=== PATIENT | female | born 1995 ===

== ENCOUNTER 2021-10-22 09:57 | Emergency (ER) | payer SELFPAY ==
[2021-10-22] MEDS ORDERED: LORazepam 2 MG/ML VIAL IM PRN (10:20)
[2021-10-22] MEDS ORDERED: HALOPERIDOL LACTATE 5 MG/1 ML INJ IM PRN (10:20)
[2021-10-22] MEDS ORDERED: SODIUM CHLORIDE 0.9% 1000 ML 1,000 ML IV ONE (10:20)
[2021-10-22] MEDS ORDERED: SODIUM CHLORIDE 0.9% 500 ML 1,000 ML IV ONE (10:20)
--- NOTE | 2021-10-22 10:25 | Emergency Department Report ---
ED General Adult HPI - General Chief complaint: Psych Stated complaint: leave me alone Time Seen by Provider: 10/22/21 10:20 Source: patient, EMS (Verbal report received from emergency medical services. EMS documentation not available at time of chart dictation ), RN notes reviewed Mode of arrival: Stretcher Limitations: Other (Patient disorganized and psychotic and received midazolam from EMS) - History of Present Illness Initial comments: The patient was evaluated in the emergency department for symptoms described in the history of present illness. He/she was evaluated in the context of the global COVID-19 pandemic, which necessitated consideration that the patient might be at risk for infection with the virus that causes COVID-19. Institut ional protocols and algorithms that pertain to the evaluation of patients at risk for COVID-19 are in a state of rapid change based on information released by regulatory bodies including the CDC and federal and state organizations. These policies and algorithms were followed during the patient's care in the emergency department. Please note that these policies, procedures and recommendations changed on a rapid basis. The patient is a 26-year-old female. She is not known to myself previously. She is brought to the hospital by EMS with an EMS articulated complaint of excited delirium. Patient is reportedly homeless, and was noted to be running around a hotel. EMS reports the patient is agitated in the field, and they had to give her midazolam, 5 mg IM, as per their protocol. In the emergency room, the patient is sleepy but arousable. She moves 4 extremities. She denies physical pain. She states that she is homeless but cannot tell me where she is from. She is not accompanied by friends or family at this time for collateral information or additional information. -: unknown Severity scale (0 -10): 0 - Related Data Allergies Allergy/AdvReac Type Severity Reaction Status Date / Time No Known Allergies Allergy Unverified 10/22/21 10:05 ED Review of Systems ROS: Stated complaint: EXCITED DELILIUM Other details as noted in HPI Comment: Unobtainable due to pts medical conditions ED Physical Exam - General Limitations: Other (Disorganization and psychosis) General appearance: anxious - Head Head exam: Present: atraumatic, normocephalic - Eye Eye exam: Present: normal appearance, PERRL, EOMI. Absent: nystagmus - ENT ENT exam: Present: normal exam, normal orophraynx, mucous membranes moist, normal external ear exam - Neck Neck exam: Present: normal inspection, full ROM. Absent: tenderness, meningismus - Respiratory Respiratory exam: Present: normal lung sounds bilaterally. Absent: respiratory distress, wheezes, rales, rhonchi, stridor, decreased breath sounds - Cardiovascular Cardiovascular Exam: Present: regular rate, normal rhythm, normal heart sounds. Absent: bradycardia, tachycardia, irregular rhythm, systolic murmur, diastolic murmur, rubs, gallop - GI/Abdominal GI/Abdominal exam: Present: soft. Absent: distended, tenderness, guarding, rebound, rigid, pulsatile mass - Extremities Exam Extremities exam: Present: normal inspection (Poor hygiene is noted in the lower extremities.), full ROM, other (2+ pulses noted in the bilateral upper and lower extremities. There is no palpable cord. negative Homans sign. Muscular compartments are soft. The pelvis is stable.). Absent: pedal edema, calf tenderness - Back Exam Back exam: Present: normal inspection, full ROM. Absent: tenderness, CVA tenderness (R), CVA tenderness (L), paraspinal tenderness, vertebral tenderness - Neurological Exam Neurological exam: Present: alert, other (No facial droop. Tongue midline. Extraocular movements intact bilaterally. Facial sensation intact to light touch in V1, V2, V3 distribution bilaterally. 5 and a 5 strength in 4 extremities. Sensation intact to light touch in 4 extremities.) - Psychiatric Psychiatric exam: Present: anxious, flat affect - Skin Skin exam: Present: warm, dry, intact, normal color. Absent: rash ED Course Vital Signs 10/22/21 10/22/21 10/22/21 10:00 10:02 11:02 Temperature 98.5 F Pulse Rate 81 77 68 Respiratory 18 12 18 Rate Blood Pressure 95/42 84/44 96/57 [Left] O2 Sat by Pulse 100 99 99 Oximetry 10/22/21 10/22/21 10/22/21 11:16 12:00 13:00 Temperature Pulse Rate 70 84 76 Respiratory 17 17 13 Rate Blood Pressure 111/53 90/36 108/45 [Left] O2 Sat by Pulse 99 100 100 Oximetry - Reevaluation(s) Reevaluation #1: 10/22/21 11:44 Differential diagnosis, including but not limited to: Psychosis, homelessness, electrolyte derangement, thyroid derangement, intracranial injury, medical clearance for psychiatric placement Assessment and plan 26-year-old female who was afebrile, initially with borderline hypotension and tachycardia, now resolved, who appears to be homeless, psychotic and disorganized. Patient is placed on a 1013. Laboratory studies unremarkable with exception of potassium 3.4. Urinalysis pending, EKG unremarkable, noncontrast CT scan of the brain ordered for medical clearance. Reassess after remainder of diagnostic tests have resulted. 10/22/21 11:48 At this point in time, this patient does not appear to have an immediate medical contraindication to psychiatric admission, evaluation, consultation and placement. However, once the patient becomes sober, if she is able to have a lucid, rational, and appropriate conversation, it would be reasonable to discharge this patient with a presumptive diagnosis of drug-induced or temporary psychosis. 10/22/21 12:39 Patient found to have pyuria. Ceftriaxone and azithromycin ordered. ED Medical Decision Making - Lab Data Result diagrams: 10/22/21 10:34 10/22/21 10:34 Vital Signs 10/22/21 10/22/21 10/22/21 10:00 10:02 11:02 Temperature 98.5 F Pulse Rate 81 77 68 Respiratory 18 12 18 Rate Blood Pressure 95/42 84/44 96/57 [Left] O2 Sat by Pulse 100 99 99 Oximetry 10/22/21 11:16 Temperature Pulse Rate 70 Respiratory 17 Rate Blood Pressure 111/53 [Left] O2 Sat by Pulse 99 Oximetry Lab Results 10/22/21 10/22/21 10/22/21 Range/Units 10:34 10:34 10:34 WBC 6.9 (4.5-11.0) K/mm3 RBC 4.11 (3.65-5.03) M/mm3 Hgb 12.5 (10.1-14.3) gm/dl Hct 37.8 (30.3-42.9) % MCV 92 (79-97) fl MCH 30 (28-32) pg MCHC 33 (30-34) % RDW 13.5 (13.2-15.2) % Plt Count 303 (140-440) K/mm3 Lymph % (Auto) 30.0 (13.4-35.0) % Morton % (Auto) 6.1 (0.0-7.3) % Eos % (Auto) 2.3 (0.0-4.3) % Baso % (Auto) 1.3 (0.0-1.8) % Lymph # (Auto) 2.1 (1.2-5.4) K/mm3 Morton # (Auto) 0.4 (0.0-0.8) K/mm3 Eos # (Auto) 0.2 (0.0-0.4) K/mm3 Baso # (Auto) 0.1 (0.0-0.1) K/mm3 Seg Neutrophils % 60.3 (40.0-70.0) % Seg Neutrophils # 4.1 (1.8-7.7) K/mm3 Sodium 140 (137-145) mmol/L Chloride 104.2 (98-107) mmol/L Carbon Dioxide 21 L (22-30) mmol/L Anion Gap 18 mmol/L BUN 19 H (7-17) mg/dL Creatinine 0.9 (0.6-1.2) mg/dL Estimated GFR > 60 ml/min BUN/Creatinine Ratio 21 % Glucose 67 (65-100) mg/dL Calcium 8.6 (8.4-10.2) mg/dL Magnesium (1.7-2.3) mg/dL Total Bilirubin 0.30 (0.1-1.2) mg/dL AST 19 (5-40) units/L ALT 10 (7-56) units/L Alkaline Phosphatase 62 (35-129) units/L Total Creatine Kinase (30-135) units/L Total Protein 6.8 (6.3-8.2) g/dL Albumin 4.1 (3.9-5) g/dL Albumin/Globulin Ratio 1.5 % TSH (0.270-4.200) mlU/mL HCG, Qual (Negative) Acetaminophen 5.0 L (10.0-30.0) ug/mL 10/22/21 10/22/21 10/22/21 Range/Units 10:34 10:34 10:34 WBC (4.5-11.0) K/mm3 RBC (3.65-5.03) M/mm3 Hgb (10.1-14.3) gm/dl Hct (30.3-42.9) % MCV (79-97) fl MCH (28-32) pg MCHC (30-34) % RDW (13.2-15.2) % Plt Count (140-440) K/mm3 Lymph % (Auto) (13.4-35.0) % Morton % (Auto) (0.0-7.3) % Eos % (Auto) (0.0-4.3) % Baso % (Auto) (0.0-1.8) % Lymph # (Auto) (1.2-5.4) K/mm3 Morton # (Auto) (0.0-0.8) K/mm3 Eos # (Auto) (0.0-0.4) K/mm3 Baso # (Auto) (0.0-0.1) K/mm3 Seg Neutrophils % (40.0-70.0) % Seg Neutrophils # (1.8-7.7) K/mm3 Sodium (137-145) mmol/L Chloride (98-107) mmol/L Carbon Dioxide (22-30) mmol/L Anion Gap mmol/L BUN (7-17) mg/dL Creatinine (0.6-1.2) mg/dL Estimated GFR ml/min BUN/Creatinine Ratio % Glucose (65-100) mg/dL Calcium (8.4-10.2) mg/dL Magnesium 1.90 (1.7-2.3) mg/dL Total Bilirubin (0.1-1.2) mg/dL AST (5-40) units/L ALT (7-56) units/L Alkaline Phosphatase (35-129) units/L Total Creatine Kinase 106 (30-135) units/L Total Protein (6.3-8.2) g/dL Albumin (3.9-5) g/dL Albumin/Globulin Ratio % TSH 2.130 (0.270-4.200) mlU/mL HCG, Qual Negative (Negative) Acetaminophen (10.0-30.0) ug/mL - EKG Data -: EKG Interpreted by Nc EKG shows normal: sinus rhythm Rate: normal - EKG Data When compared to previous EKG there are: previous EKG unavailable 10/22/21 11:41 The EKG is interpreted at 10: 36 Sinus rhythm, rate 83 bpm. Normal axis, normal P wave axis, high left ventricular voltage, QTC 4 6 1 ms. Abnormal EKG. Not a STEMI. There is no prior for comparison. - Radiology Data Radiology results: pending, report reviewed, image reviewed interpreted by me: Noncontrast CT scan of the brain, interpreted by myself, demonstrates no masses, obvious skull fractures, or intracranial hemorrhage CT BRAIN: 10/22/2021 INDICATION / CLINICAL INFORMATION: Medical Clearance Psych. COMPARISON: None available. FINDINGS: BRAIN/INTRACRANIAL STRUCTURES: Unenhanced CT images of the brain demonstrate no evidence of acute abnormality. Ventricles and sulci are normal in size and shape. There is no evidence of hemorrhage or mass. There are no abnormal extra-axial fluid collections. EXTRACRANIAL STRUCTURES: Unremarkable. IMPRESSION: Negative unenhanced CT of the brain. All CT scans at this location are performed using dose reduction to ALARA by means of automated exposure control. Signer Name: Cesar Zuniga MD Signed: 10/22/2021 11:01 AM Workstation Name: [id number] Critical care attestation.: If time is entered above; I have spent that time in minutes in the direct care of this critically ill patient, excluding procedure time. ED Disposition Clinical Impression: Medical clearance for psychiatric admission, Disorganized behavior, Homelessness Disposition: [address] [place] [address] Is pt being admited?: No Does the pt Need Aspirin: No Condition: Stable Referrals: PRIMARY CARE, [Primary Care Provider] - 3-5 Days
[2021-10-22 10:51] LABS: Basophils # (Auto) 0.1 K/mm3 (0.0-0.1); Basophils % (Auto) 1.3 % (0.0-1.8); Eosinophils # (Auto) 0.2 K/mm3 (0.0-0.4); Eosinophils % (Auto) 2.3 % (0.0-4.3); Hematocrit 37.8 % (30.3-42.9); Hemoglobin 12.5 gm/dl (10.1-14.3); Lymphocytes # (Auto) 2.1 K/mm3 (1.2-5.4); Mean Corpuscular HGB Conc 33 % (30-34); Mean Corpuscular Volume 92 fl (79-97); Monocytes # (Auto) 0.4 K/mm3 (0.0-0.8); Monocytes % (Auto) 6.1 % (0.0-7.3); Platelet Count 303 K/mm3 (140-440); Red Blood Count 4.11 M/mm3 (3.65-5.03); Red Cell Distribution Width 13.5 % (13.2-15.2)
[2021-10-22 11:04] LABS: Alanine Aminotransferase 10 units/L (7-56); Albumin 4.1 g/dL (3.9-5); BUN/Creatinine Ratio 21; Blood Urea Nitrogen 19 mg/dL (7-17); Calcium 8.6 mg/dL (8.4-10.2); Hemolysis Index 22
[2021-10-22] MEDS ORDERED: METOCLOPRAMIDE 10 MG TAB PO PRN (11:47)
[2021-10-22] MEDS ORDERED: ACETAMINOPHEN 325 MG TAB PO PRN (11:47)
[2021-10-22] MEDS ORDERED: diphenhydrAMINE 25 MG CAP PO PRN (11:47)
--- NOTE | 2021-10-22 12:06 | Cat Scan Report ---
CT BRAIN: 10/22/2021 INDICATION / CLINICAL INFORMATION: Medical Clearance Psych. COMPARISON: None available. FINDINGS: BRAIN/INTRACRANIAL STRUCTURES: Unenhanced CT images of the brain demonstrate no evidence of acute abn ormality. Ventricles and sulci are normal in size and shape. There is no evidence of hemorrhage or mass. There are no abnormal extra-axial fluid collections. EXTRACRANIAL STRUCTURES: Unremarkable. IMPRESSION: Negative unenhanced CT of the brain. All CT scans at this location are performed using dose reduction to ALARA by means of automated expos ure control. Signer Name: Cesar Zuniga MD Signed: 10/22/2021 12:01 PM Workstation Name: [id number]
[2021-10-22 12:29] LABS: Cocaine Screen,Urine Negative; Methadone Screen,Urine Negative; Opiate Screen,Urine Negative
[2021-10-22 12:31] LABS: Bilirubin,Urine NEG (Negative); Blood,Urine NEG (Negative); Color,Urine Amber (Yellow); Hyaline Casts,Urine 1 /LPF; Mucus,Urine 3+ /HPF
[2021-10-22] MEDS ORDERED: AZITHROMYCIN 250 MG TAB PO ONE (12:38)
[2021-10-22 12:42] LABS: Amphetamine Screen,Urine Positive; Benzodiazepines Screen,Urine Positive; Cannabinoid Screen,Urine Positive
--- NOTE | 2021-10-22 13:33 | Consultation ---
History of Present Illness - Reason for Consult Consult date: 10/22/21 Reason for consult: agitation - History of Present Psychiatric Illness The patient is a 26y/o female patient who was brought in by EMS for agitation after being found running around a hotel. I attempted to evaluate this patient. She arouses minimally and drifts back off. She is unable to answer any questions. I ask the patient what is her birthday, she repeats, "1965." I ask her again, she says "birthday" and drifts back off. PAST PSYCHIATRIC HISTORY: Unable to assess PAST MEDICAL HISTORY: Unable to assess Family Psychiatric History: Unable to assess SOCIAL HISTORY Unable to assess REVIEW OF SYSTEMS Unable to assess MENTAL STATUS EXAMINATION Unable to assess Assessment (1) Mood Disorder, Unspecified (2) Polysubstabce abuse with Substance Induced Mood Disorder Treatment Plan [address] 125mg po BID Doxepin 10mg po qhs Medical: per primary Sitter: refer to primary Disposition: Recommend acute psychiatric inpatient treatment Will follow. Thanks Case staffed with Dr. Joaquin Medications and Allergies Allergies Allergy/AdvReac Type Severity Reaction Status Date / Time No Known Allergies Allergy Unverified 10/22/21 10:05 Active Meds: Active Medications Acetaminophen (Acetaminophen 325 Mg Tab) 650 mg PO Q6HR PRN PRN Reason: PAIN Diphenhydramine HCl (Diphenhydramine 25 Mg Cap) 50 mg PO QHS PRN PRN Reason: Insomnia Haloperidol Lactate (Haloperidol Lactate 5 Mg/1 Ml Inj) 5 mg IM Q6HR PRN PRN Reason: Agitation Lorazepam (Lorazepam 2 Mg/Ml Vial) 2 mg IM Q4HR PRN PRN Reason: Agitation Metoclopramide HCl (Metoclopramide 10 Mg Tab) 10 mg PO Q6HR PRN PRN Reason: Nausea Potassium Chloride (Potassium Chloride Er 20 Meq Tab) 40 meq PO QDAY [facility] Mental Status Exam - Vital signs Last Vital Signs Temp 98.5 F 10/22/21 10:00 Pulse 84 10/22/21 12:00 Resp 17 10/22/21 12:00 BP 90/36 10/22/21 12:00 Pulse Ox 100 10/22/21 12:00 Results Result Diagrams: 10/22/21 10:34 10/22/21 10:34 Abnormal lab results 10/22/21 10/22/21 10/22/21 Range/Units 10:34 10:34 10:34 Potassium 3.4 L (3.6-5.0) mmol/L Carbon Dioxide 21 L (22-30) mmol/L BUN 19 H (7-17) mg/dL Urine WBC (Auto) (0.0-6.0) /HPF Salicylates < 0.3 L (2.8-20.0) mg/dL Acetaminophen 5.0 L (10.0-30.0) ug/mL 10/22/21 Range/Units Unknown Potassium (3.6-5.0) mmol/L Carbon Dioxide (22-30) mmol/L BUN (7-17) mg/dL Urine WBC (Auto) 55.0 H (0.0-6.0) /HPF Salicylates (2.8-20.0) mg/dL Acetaminophen (10.0-30.0) ug/mL All other labs normal.
[2021-10-22] MEDS: POTASSIUM CHLORIDE ER 20 MEQ TAB PO SCH (14:04)
[2021-10-22] MEDS: DIVALPROEX DR 125 MG TAB PO SCH ×2 (14:28→22:52)
[2021-10-22] MEDS ORDERED: DOXEPIN 10 MG CAP PO SCH (22:00)
[2021-10-22 23:12] LABS: Blood Urea Nitrogen 15 mg/dL (7-17); Calcium 7.9 mg/dL (8.4-10.2); Hemolysis Index 6
[2021-10-22 23:18] LABS: BUN/Creatinine Ratio 21
[2021-10-23] MEDS: POTASSIUM CHLORIDE ER 20 MEQ TAB PO SCH (10:05)
[2021-10-23] MEDS: DIVALPROEX DR 125 MG TAB PO SCH (10:06)
--- NOTE | 2021-10-23 11:15 | Progress Note ---
Subjective - Reason for Consult Consult date: 10/23/21 Reason for consult: agitation - Chief Complaint Chief complaint: The patient was seen today. She is more with it today. She is able to answer questions appropriately. The patient says she doesn't remember totally what brought her here, but she says "I remember being at the hotel looking for someone." She says she's "sort of homeless" and was living at a prison with her mother, but she was asked to leave. The patient denies illicit drug use, although she's positive for several. She denies SI/HI. She says "no, I don't feel that at all." When asking the patient's about hallucinations, she says "sometimes I do, like purple spots sometimes." She says she slept good and her appetite is good. The patient is dozing during the evaluation. REVIEW OF SYSTEMS Constitutional: Negative for weight loss ENT: Negative for stridor Respiratory: Negative for cough or hemoptysis All other systems reviewed and are negative MENTAL STATUS EXAMINATION General Appearance and Behavior: Age appropriate, good hygiene, wearing appropriate clothes, good eye contact, cooperative with questioning Cooperation: Participating/engaged Psychomotor Behavior: unremarkable and within normal limits Mood: okay Affect and affective range: congruent with mood Thought Process: goal directed Thought Content: None Speech: Normal volume, Regular rate and rhythm. Intellectual Functioning: Average Suicidal Ideation: Denies Homicidal Ideation: Denies Hallucinations: Denies Delusions: None elicited Impulse Control: Limited Insight and Judgment: limited insight and poor judgment Memory: Normal Attention: Normal Orientation: Alert, oriented. Assessment (1) Mood Disorder, Unspecified (2) Polysubstabce abuse with Substance Induced Mood Disorder Treatment Plan d/c [address] 125mg po BID Doxepin 10mg po qhs Medical: per primary Sitter: refer to primary Disposition: Do not recommend acute psychiatric inpatient treatment. The patient understands that if SI/HI or any fear of endangerment arise she is to seek immediate assistance. She is to abstain from all ilicit drug use. The director part to give the patient all necessary outpatient resources, including drug rehab Will sign off. Thanks Case staffed with Dr. Joaquin Mental Status Exam - Vital signs Last Vital Signs Temp 98.5 F 10/22/21 21:41 Pulse 64 10/22/21 21:41 Resp 16 10/22/21 21:41 BP 92/52 10/22/21 21:41 Pulse Ox 99 10/22/21 21:41
--- NOTE | 2021-10-23 11:31 | Event Note ---
Date: 10/23/21 Patient has been evaluated by our psychiatric team. Patient recommended for outpatient treatment and follow-up. Patient denied any suicidal or homicidal ideation. No visual or auditory hallucination. Patient is medically and psychiatrically stable for discharge.
[2021-10-23 13:17] VITALS: BP 93/55
--- NOTE | 2021-10-23 13:18 | Electrocardiograph Report ---
[facility] Test Date: 2021-10-22 Test Time: 10:36:14 Pat Name: PREM SOTELO Department: Room: Gender: F Toddler Caregiver: NIDIA : 1995 Requested By: ZEE QUEZADA Order Number: [id number] Reading MD: Portia Ko Measurements Intervals Gates Rate: 83 P: 56 CA: 129 QRS: 58 QRSD: 108 T: 68 QT: 392 QTc: 461 Interpretive Statements Sinus rhythm No previous ECG available for comparison Electronically Signed On 10-23-2021 13:17:59 EST by Portia Ko
== END 2021-10-23 13:16 | disposition home or self-care (01) ==
LOC: EDBD → ED 09:57
DX: Z13.30 Encounter for screening examination for mental health and behavioral disorders, unspecified (principal); F20.1 Disorganized schizophrenia; R94.6 Abnormal results of thyroid function studies; Z20.822 Contact with and (suspected) exposure to COVID-19; Z59.00 Homelessness unspecified; Z79.899 Other long term (current) drug therapy
CPT/HCPCS: 36415; 70450; 80048; 80053; 80307; 81001; 82550; 83735; 84443; 84702; 84703; 85025; 87086; 93005; 93010; 96361; 96365; 96366; 99285; J0696; J7030; U0003; 80320; Q0162; G0480